=== PATIENT | male | born 1960 | race Caucasian/White ===

== ENCOUNTER 2025-02-06 10:59 | Day surgery (SDC) | payer OTHER ==
[2025-02-06] MEDS: Lactated Ringers 1,000 ML IV SCH (11:45)
[2025-02-06] MEDS ORDERED: Ketamine 200 MG/20 ML MDV ONE (12:12)
[2025-02-06] MEDS ORDERED: Propofol 200 MG/20 ML SDV ONE ×2 (12:12)
[2025-02-06] MEDS ORDERED: fentaNYL 50 MCG/ML SDV ONE (12:12)
[2025-02-06] MEDS ORDERED: Midazolam 1 MG/ML 2 ML SDV ONE (12:12)
== END 2025-02-06 13:30 | disposition home or self-care (01) ==
LOC: CC.SDS 10:59
PROVIDERS: ATTEND Family Medicine
DX: Z12.11 Encounter for screening for malignant neoplasm of colon (principal); K57.30 Diverticulosis of large intestine without perforation or abscess without bleeding; E78.5 Hyperlipidemia, unspecified; E66.9 Obesity, unspecified; Z68.32 Body mass index [BMI] 32.0-32.9, adult; Z79.899 Other long term (current) drug therapy
CPT/HCPCS: 45378; J7120; J2250; J2704; J3010; J3490